=== PATIENT | female | born 1975 | race African-American/Black ===

== ENCOUNTER 2017-06-09 11:32 | Inpatient (IN) | payer OTHER ==
[~2017-06-09] VITALS: Ht 165.1 cm; Wt 79.9 kg
[2017-06-09] MEDS ORDERED: SODIUM CHLORIDE 0.9% 1,000 ML IV ONE ×2 (12:38→16:36)
[2017-06-09] MEDS ORDERED: MORPHINE SULFATE 4 MG/ML CPJ (NOT FOR IM USE) IV STA (12:38)
[2017-06-09] MEDS ORDERED: ONDANSETRON HCL 4MG/2ML VIAL IV STA (12:38)
[2017-06-09 13:02] LABS: BASOPHILS % 0.4 % (0.0-2.0); EOSINOPHILS % 0.1 % (0.0-5.0); HEMATOCRIT. 29.7 % (36.0-48.0); HEMOGLOBIN. 9.9 g/dL (12.0-16.0); LYMPHOCYTES % 9.3 % (20.0-50.0); MEAN CORPUSCULAR HEMOGLOBIN 25.8 pg (28.0-32.0); MEAN CORPUSCULAR VOLUME 77.7 fL (81.0-99.0); MEAN PLATELET VOLUME 7.4 fl (7.4-10.4); MONOCYTES % 8.2 % (2.0-8.0); PLATELET 554 x1000/uL (130-400); RED BLOOD CELL COUNT 3.83 mill/uL (4.2-5.4); RED CELL DISTRIBUTION WIDTH 17.3 % (11.6-14.6)
[2017-06-09 13:08] LABS: CHLORIDE 95 mEq/L (98-107)
[2017-06-09 13:13] LABS: CARBON DIOXIDE 29 mEq/L (21-32)
[2017-06-09 13:18] LABS: INR 1.2
[2017-06-09 14:24] LABS: CLARITY URINE CLEAR (CLEAR); COLOR URINE YELLOW (YELLOW); GLUCOSE URINE NEGATIVE (NEGATIVE); KETONES URINE TRACE (NEGATIVE); LEUKOCYTE ESTERASE URINE TRACE (NEGATIVE); NITRITE URINE NEGATIVE (NEGATIVE); OCCULT BLOOD URINE NEGATIVE (NEGATIVE); PH URINE >=9.0 (4.5-8.0); PROTEIN URINE 1+ (NEGATIVE)
[2017-06-09] MEDS ORDERED: MORPHINE SULFATE 4 MG/ML CPJ (NOT FOR IM USE) IV ONE (16:45)
[2017-06-09] MEDS ORDERED: NA PHOS,M-B/NA PHOS,DI-BA ENEMA 118ML PR PRN (17:30)
[2017-06-09] MEDS ORDERED: MAGNESIUM/ALUMINUM HYDROXIDE/SIMETHICONE 30ML UDC PO PRN (17:30)
[2017-06-09] MEDS ORDERED: ACETAMINOPHEN 325MG TABLET PO PRN (17:30)
[2017-06-09] MEDS ORDERED: GUAIFENESIN 200MG/10ML SUGAR FREE UDC PO PRN (17:30)
[2017-06-09] MEDS ORDERED: LORAZEPAM 2MG/ML CPJ IV PRN (17:30)
[2017-06-09] MEDS ORDERED: IPRATROPIUM/ALBUTEROL 0.5-3(2.5)MG/3ML NEB INH PRN (17:30)
[2017-06-09] MEDS ORDERED: ONDANSETRON HCL 4MG/2ML VIAL IV PRN (17:30)
[2017-06-09] MEDS ORDERED: CLONIDINE 0.1MG TABLET PO PRN (17:30)
[2017-06-09] MEDS ORDERED: DIPHENHYDRAMINE 50MG/ML VIAL IV PRN (17:30)
[2017-06-09] MEDS ORDERED: CEFTRIAXONE 1 G PREMIX 50 ML IV ONE (18:30)
[2017-06-09] MEDS ORDERED: LEVOFLOXACIN 500MG PREMIX 100 ML IV SCH (19:06)
[2017-06-09] MEDS: ENOXAPARIN 40MG/0.4ML SYR SUBCUT SCH (20:00)
[2017-06-09 22:15] VITALS: BP 102/54
[2017-06-09 22:21] VITALS: BP 102/54
[2017-06-10] MEDS ORDERED: ZOLPIDEM TARTRATE 5MG TABLET PO PRN
[2017-06-10] MEDS ORDERED: CEFTRIAXONE 1 G PREMIX 50 ML IV SCH (01:00)
[2017-06-10] MEDS: MORPHINE SULFATE 2 MG/ML CPJ (NOT FOR IM USE) IV PRN ×5 (01:01→18:43)
[2017-06-10 04:00] VITALS: BP 110/70
[2017-06-10 08:00] VITALS: BP 100/59
[2017-06-10] MEDS: PANTOPRAZOLE SODIUM 40 MG/VIAL IV SCH (10:08)
[2017-06-10] MEDS ORDERED: LIDOCAINE HCL 1% 20ML VIAL (Pyxis) INJ ONE (12:19)
[2017-06-10] MEDS ORDERED: SODIUM BICARBONATE 4.2% 5 MEQ/10 ML DISP.SYRIN IV ONE (12:19)
[2017-06-10 12:25] VITALS: BP 102/59
[2017-06-10 14:32] VITALS: BP 112/64
[2017-06-10 16:19] VITALS: BP 104/65
[2017-06-10 20:00] VITALS: BP 105/64
[2017-06-10] MEDS: LEVOFLOXACIN 500MG PREMIX 100 ML IV SCH (21:03)
[2017-06-10] MEDS: ENOXAPARIN 40MG/0.4ML SYR SUBCUT SCH (21:04)
[2017-06-11] VITALS: BP 102/66
[2017-06-11] MEDS: MORPHINE SULFATE 2 MG/ML CPJ (NOT FOR IM USE) IV PRN ×5 (01:10→22:10)
[2017-06-11 04:00] VITALS: BP 106/65
[2017-06-11] MEDS: CEFTRIAXONE 1 G PREMIX 50 ML IV SCH (05:53)
[2017-06-11 08:00] VITALS: BP 109/66
[2017-06-11] MEDS: PANTOPRAZOLE SODIUM 40 MG/VIAL IV SCH (08:04)
[2017-06-11 12:00] VITALS: BP 110/68
[2017-06-11 13:15] LABS: HEMATOCRIT. 25.8 % (36.0-48.0); HEMOGLOBIN. 8.4 g/dL (12.0-16.0); MEAN CORPUSCULAR HEMOGLOBIN 25.7 pg (28.0-32.0); MEAN CORPUSCULAR VOLUME 78.9 fL (81.0-99.0); MEAN PLATELET VOLUME 7.3 fl (7.4-10.4); PLATELET 434 x1000/uL (130-400); RED BLOOD CELL COUNT 3.27 mill/uL (4.2-5.4); RED CELL DISTRIBUTION WIDTH 17.3 % (11.6-14.6)
[2017-06-11 13:46] LABS: CARBON DIOXIDE 26 mEq/L (21-32); CHLORIDE 97 mEq/L (98-107)
[2017-06-11 14:21] LABS: PLATELET ESTIMATE INCREASED
[2017-06-11 16:00] VITALS: BP 110/68
[2017-06-11] MEDS: DOCUSATE SODIUM 100MG CAPSULE PO PRN (18:26)
[2017-06-11 20:00] VITALS: BP 103/60
[2017-06-11] MEDS: TRAMADOL 50MG TABLET PO PRN (20:37)
[2017-06-11] MEDS: ENOXAPARIN 40MG/0.4ML SYR SUBCUT SCH (20:37)
[2017-06-11] MEDS: LEVOFLOXACIN 500MG PREMIX 100 ML IV SCH (20:37)
[2017-06-11] MEDS: IPRATROPIUM/ALBUTEROL 0.5-3(2.5)MG/3ML NEB HHN SCH (23:46)
[2017-06-12] VITALS: BP 112/69
[2017-06-12] MEDS: IPRATROPIUM/ALBUTEROL 0.5-3(2.5)MG/3ML NEB HHN SCH ×5 (03:19→20:09)
[2017-06-12 04:00] VITALS: BP 97/64
[2017-06-12] MEDS: MORPHINE SULFATE 2 MG/ML CPJ (NOT FOR IM USE) IV PRN ×6 (04:02→23:47)
[2017-06-12] MEDS: CEFTRIAXONE 1 G PREMIX 50 ML IV SCH (05:46)
[2017-06-12 08:00] VITALS: BP 112/67
[2017-06-12] MEDS: PANTOPRAZOLE SODIUM 40 MG/VIAL IV SCH (08:15)
[2017-06-12] MEDS: DOCUSATE SODIUM 100MG CAPSULE PO PRN ×2 (08:15→16:48)
[2017-06-12 11:40] VITALS: BP 102/63
[2017-06-12] MEDS: TRAMADOL 50MG TABLET PO PRN (13:25)
[2017-06-12 15:48] VITALS: BP 104/66
[2017-06-12 20:00] VITALS: BP 109/74
[2017-06-12] MEDS: LEVOFLOXACIN 500MG PREMIX 100 ML IV SCH (20:56)
[2017-06-12] MEDS: ENOXAPARIN 40MG/0.4ML SYR SUBCUT SCH (20:56)
[2017-06-12] MEDS: LACTULOSE 20G/30ML UDC PO SCH (21:00)
[2017-06-13] VITALS: BP 117/68
[2017-06-13] MEDS: IPRATROPIUM/ALBUTEROL 0.5-3(2.5)MG/3ML NEB HHN SCH ×3 (00:09→07:28)
[2017-06-13] MEDS: DOCUSATE SODIUM 100MG CAPSULE PO PRN (00:45)
[2017-06-13 04:00] VITALS: BP 112/71
[2017-06-13] MEDS: MORPHINE SULFATE 2 MG/ML CPJ (NOT FOR IM USE) IV PRN ×2 (04:21→08:14)
[2017-06-13] MEDS: CEFTRIAXONE 1 G PREMIX 50 ML IV SCH (05:38)
[2017-06-13] MEDS: LACTULOSE 20G/30ML UDC PO SCH (05:38)
[2017-06-13 08:00] VITALS: BP 101/61
[2017-06-13] MEDS ORDERED: FAMOTIDINE 20MG TABLET PO SCH (09:00)
[2017-06-13] MEDS: TRAMADOL 50MG TABLET PO PRN (10:48)
[2017-06-13 11:14] VITALS: BP 111/69
[2017-06-13 11:15] VITALS: BP 111/69
== END 2017-06-13 11:35 | disposition home or self-care (01) | DRG 871 ==
LOC: ER 11:45 → 6WST 16:35 → EDBEDREQ 16:54 → SUPCPDRO 18:25 → ENRESERV 20:25
PROVIDERS: ADMIT Internal Medicine; ATTEND Internal Medicine
PROC: 0W9G3ZZ Drainage of Peritoneal Cavity, Percutaneous Approach (ICD-10-PCS; principal; 2017-06-10)
DX: A41.9 Sepsis, unspecified organism (principal); K65.2 Spontaneous bacterial peritonitis; E43 Unspecified severe protein-calorie malnutrition; R18.8 Other ascites; C56.9 Malignant neoplasm of unspecified ovary; D63.8 Anemia in other chronic diseases classified elsewhere; E83.51 Hypocalcemia; Z68.29 Body mass index [BMI] 29.0-29.9, adult
CPT/HCPCS: 36415; 49083; 74176; 80053; 81001; 81025; 82040; 83036; 83605; 83615; 83690; 84157; 85025; 85610; 87070; 87205; 88108; 89050; 93970; 94640; 94664; 96361; 96365; 96366; 96375; 96376; 97163; 99285; C9113; J0696; J1650; J1956; J2270; J2405; J3490; J7030; J7050; J7620